=== PATIENT | female | born 2000 | race Caucasian/White ===

== ENCOUNTER 2018-12-17 15:20 | Emergency (ER) | payer MEDICAID ==
[~2018-12-17] VITALS: Ht 157.5 cm; Wt 49.1 kg
[2018-12-17 15:25] VITALS: Ht 157.5 cm; Wt 49.1 kg
[2018-12-17] MEDS ORDERED: SEROQUEL100 MG PO (15:28)
[2018-12-17 15:53] LABS: APPEARANCE CLEAR (CLEAR); BILIRUBIN NEGATIVE (NEGATIVE); COLOR YELLOW (YELLOW); GLUCOSE NEGATIVE (NEGATIVE); HCG URINE NEGATIVE (NEGATIVE); KETONE SMALL mg/dL (NEGATIVE); NITRITE NEGATIVE (NEGATIVE); PROTEIN NEGATIVE (NEGATIVE); SPECIFIC GRAVITY 1.015 (1.005-1.020); UROBILINOGEN NORMAL (NORMAL)
[2018-12-17 15:55] LABS: BACTERIA FEW /hpf (NONE SEEN); RED CELLS - URINE 0-5 /hpf (0-5); WHITE CELLS - URINE 0-5 /hpf (0-5)
[2018-12-17 15:56] LABS: BASOPHILS 0.3 % (0-2); EOSINOPHILS 1.6 % (0-7); HEMATOCRIT 39.7 % (36.0-48.0); HEMOGLOBIN 14.1 g/dL (12-16); MCH 34.6 pg (26.0-34.0); MCHC 35.5 g/dL (31.0-37.0); MCV 97.3 fL (80.0-100.0); MEAN PLATELET VOLUME 10.9 fL (7.4-10.4); MONOCYTES 7.7 % (2-11); NEUTROPHILS 70.4 % (40-80); PLATELET COUNT 264 10x3/uL (130-400); RBC 4.08 10x6/uL (4.00-5.40); RDW 12.5 % (11.5-14.5); WBC 6.4 10x3/uL (4.8-10.8)
[2018-12-17 16:13] LABS: ALBUMIN 4.4 g/dL (3.4-5.0); ALKALINE PHOSPHATASE 73 U/L (46-116); ALT (SGPT) 34 U/L (10-68); AMYLASE - SERUM 49 U/L (25-115); CALC OSMOLALITY 277 mosm/kg (275-300); CARBON DIOXIDE 26.4 mmol/L (21.0-32.0); CHLORIDE - SERUM 103 mmol/L (98-107); CREATININE - SERUM 0.7 mg/dL (0.6-1.3); GLUCOSE 85 mg/dL (74-106); LIPASE 107 U/L (73-393); POTASSIUM - SERUM 3.7 mmol/L (3.5-5.1); PROTEIN - SERUM 8.2 g/dL (6.4-8.2); SODIUM 140 mmol/L (136-145); UREA NITROGEN 12 mg/dL (7-18); eGFR NON AFRICAN AMERICAN > 90 mL/min (90-120)
[2018-12-17] MEDS ORDERED: SPRINTEC 28 DA1 EAC1 PO (18:30)
[2018-12-17 18:54] VITALS: BP 122/79
== END 2018-12-17 18:54 | disposition home or self-care (01) ==
LOC: D.ER 15:20
PROVIDERS: Family Medicine
DX: R10.9 Unspecified abdominal pain (principal); N93.9 Abnormal uterine and vaginal bleeding, unspecified

== ENCOUNTER 2019-07-25 15:34 | Inpatient (IN) | payer MEDICAID ==
[~2019-07-25] VITALS: Ht 157.5 cm; Wt 54.5 kg
[2019-07-25] VITALS (10 sets, daily range): BP systolic 108–126; BP diastolic 63–82; BMI 22.3
[~2019-07-25 15:34] MED LIST: SEROQUEL100 MG PO; SPRINTEC 28 DA1 EAC1 PO
[2019-07-25 16:02] LABS: BASOPHILS 0.3 % (0-2); EOSINOPHILS 0.5 % (0-7); HEMATOCRIT 43.1 % (36.0-48.0); HEMOGLOBIN 14.6 g/dL (12-16); IMMATURE GRANULOCYTES 0.2 % (0-5); LYMPHOCYTES 14.6 % (15-50); MCH 34.6 pg (26.0-34.0); MCHC 33.9 g/dL (31.0-37.0); MCV 102.1 fL (80.0-100.0); MEAN PLATELET VOLUME 10.8 fL (7.4-10.4); MONOCYTES 4.7 % (2-11); NEUTROPHILS 79.7 % (40-80); RBC 4.22 10x6/uL (4.00-5.40); RDW 13.1 % (11.5-14.5); WBC 11.2 10x3/uL (4.8-10.8)
--- NOTE | 2019-07-25 16:08 | NUR ---
PT AGITATED AND PULLING AGAINST VENTILATION. DR. GONZALES PUSHED 5 ML PROPOFOL
--- NOTE | 2019-07-25 16:45 | NUR ---
16 FR NG TUBE PLACED. POSITION VERIFIED BY AUSCULATION.
--- NOTE | 2019-07-25 16:47 | NUR ---
PT INTUBATED AT [address] CURIEL. 7.5 ETT 23 AT [facility]. CO2 MONITOR COLOR CHANGE, RADIOLOGY AT BEDSIDE FOR POST INTUBATION CXR.
--- NOTE | 2019-07-25 16:48 | NUR ---
PT BITING ON VENTILATION TUBING. DR. CURIEL ADMINISTERED 5 ML PROPOFOL
--- NOTE | 2019-07-25 16:49 | NUR ---
16FR LARES PLACED AT 1556. STERILE TECHNIQUE MAINTAINED THROUGHOUT PROCEDURE. URINE TO LAB.
--- NOTE | 2019-07-25 16:51 | NUR ---
ETOMIDATE 20 MG SIVP SUCCINYCHOLINE 100 MG SIVP FOR INTUBATION. DR. CURIEL AT BEDSIDE. TIME OF ADMINISTRATION 1546.
[2019-07-25 16:54] LABS: PLATELET COUNT 350 10x3/uL (130-400)
--- NOTE | 2019-07-25 17:00 | NUR ---
PT BECOMING VERY AGITATED. DR. CURIEL PUSHED 10 ML PROPOFOL
[2019-07-25 17:07] LABS: UDS - AMPHET NEGATIVE QUAL (NEGATIVE); UDS - BARB NEGATIVE QUAL (NEGATIVE); UDS - BENZO NEGATIVE QUAL (NEGATIVE); UDS - COCAINE NEGATIVE QUAL (NEGATIVE); UDS - OPIATE NEGATIVE QUAL (NEGATIVE); UDS - PCP NEGATIVE QUAL (NEGATIVE); UDS - THC POSITIVE QUAL (NEGATIVE)
[2019-07-25 17:14] LABS: CALC OSMOLALITY 286 mosm/kg (275-300); CALCIUM 8.1 mg/dL (8.5-10.1); CHLORIDE - SERUM 106 mmol/L (98-107); CREATININE - SERUM 0.7 mg/dL (0.6-1.3); GLUCOSE 107 mg/dL (74-106); HCG SERUM NEGATIVE (NEGATIVE); POTASSIUM - SERUM 5.1 mmol/L (3.5-5.1); SODIUM 144 mmol/L (136-145); UREA NITROGEN 13 mg/dL (7-18); eGFR NON AFRICAN AMERICAN > 90 mL/min (90-120)
[2019-07-25 17:16] LABS: APPEARANCE CLEAR (CLEAR); BILIRUBIN NEGATIVE (NEGATIVE); COLOR YELLOW (YELLOW); GLUCOSE NEGATIVE (NEGATIVE); KETONE NEGATIVE (NEGATIVE); NITRITE NEGATIVE (NEGATIVE); PROTEIN NEGATIVE (NEGATIVE); UROBILINOGEN NORMAL (NORMAL)
[2019-07-25 17:26] LABS: ALKALINE PHOSPHATASE 61 U/L (46-116); ALT (SGPT) 40 U/L (10-68); BILIRUBIN - TOTAL 0.24 mg/dL (0.2-1.3); MAGNESIUM - SERUM 2.4 mg/dL (1.8-2.4); PROTEIN - SERUM 8.2 g/dL (6.4-8.2)
--- NOTE | 2019-07-25 18:07 | NUR ---
PT BECOMING AGITATED WHILE ADMINISTERING EKG. DR. CURIEL PUSHED 5 CC PROPOFAL
--- NOTE | 2019-07-25 18:40 | NUR ---
PT BECOMING AGITATED. SUCTIONED SECRETIONS. DR. CURIEL ADMINISTERED 5 ML DIPRIVAN
--- NOTE | 2019-07-25 19:05 | NUR ---
GETTING PT READY FOR TRANSPORT WAS AROUSED. DR CURIEL ADMINISTERED 5 ML PROPOFAL
--- NOTE | 2019-07-25 19:05 | NUR ---
RECEIVED BY ER STAFF. PT INTUBATED, SEDATED, OPENS EYES TO DEEP STIMULI. L HAND PIV AND R HAND PIV PATENT, DRESSING INTACT. VSS, NO SIGNS OF ACUTE DISTRESS NOTED. O2 SAT 100%, NSR ON MONITOR. WILL CONTINUE PLAN OF CARE.
--- NOTE | 2019-07-25 20:00 | NUR ---
GRANDMOTHER AND SISTER AT BEDSIDE, UPDATE GIVEN.
--- NOTE | 2019-07-25 20:25 | NUR ---
DR BHARATHI PRICE.
--- NOTE | 2019-07-25 21:00 | NUR ---
PT OBSERVED TRYING TO SIT UP, PULLING AT RESTRAINTS. UNABLE TO FOLLOW COMMANDS. OPENS EYES SPONTANEOUSLY. WILL TITRATE DIPRIVAN ACCORDING TO ORDERS.
--- NOTE | 2019-07-25 22:15 | NUR ---
SPOKE WITH DR GARVIN, NEW ORDERS RECEIVED.
--- NOTE | 2019-07-25 23:00 | NUR ---
REASSESSMENT COMPLETE, SEE FLOWSHEET. VSS, NO SIGNS OF ACUTE DISTRESS NOTED. PT SEDATED, OPENS EYES TO VOICE. WILL NOT FOLLOW COMMANDS. WILL CONTINUE PLAN OF CARE.
[2019-07-26] VITALS (24 sets, daily range): BP systolic 97–128; BP diastolic 42–83; Ht 157.5 cm; Wt 54.5 kg
--- NOTE | 2019-07-26 01:30 | NUR ---
PT OBSERVED SITTING STRAIGHT UP IN THE BED. FENTANYL TITRATED PER MAR. UPDATED FAMILY. WILL MONITOR.
--- NOTE | 2019-07-26 03:00 | NUR ---
REASSESSMENT COMPLETE, SEE FLOWSHEET.
--- NOTE | 2019-07-26 03:30 | NUR ---
PT AGITATED, ATTEMPTING TO SIT STRAIGHT UP IN BED. FENTANYL TITRATED PER ORDERS.
[2019-07-26 04:13] LABS: BASOPHILS 0.2 % (0-2); EOSINOPHILS 1.6 % (0-7); HEMATOCRIT 35.3 % (36.0-48.0); IMMATURE GRANULOCYTES 0.3 % (0-5); LYMPHOCYTES 26.3 % (15-50); MCH 33.9 pg (26.0-34.0); MEAN PLATELET VOLUME 10.4 fL (7.4-10.4); MONOCYTES 8.6 % (2-11); PLATELET COUNT 316 10x3/uL (130-400); RBC 3.54 10x6/uL (4.00-5.40); RDW 12.7 % (11.5-14.5); WBC 11.6 10x3/uL (4.8-10.8)
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
[2019-07-26 04:24] LABS: CALC OSMOLALITY 288 mosm/kg (275-300); CALCIUM 7.6 mg/dL (8.5-10.1); CARBON DIOXIDE 22.3 mmol/L (21.0-32.0); CHLORIDE - SERUM 109 mmol/L (98-107); CREATININE - SERUM 0.6 mg/dL (0.6-1.3); GLUCOSE 72 mg/dL (74-106); SODIUM 146 mmol/L (136-145); UREA NITROGEN 11 mg/dL (7-18); eGFR NON AFRICAN AMERICAN > 90 mL/min (90-120)
--- NOTE | 2019-07-26 04:30 | NUR ---
SPOKE WITH NEXT OF KIN, GRANDMOTHER DERIK. UPDATED ON PT STATUS. INFORMED HER THAT PT WAS STABLE, ANSWERING QUESTIONS BY NODDING HEAD YES AND NO. INFORMED HER THAT UNTIL WE ARE ABLE TO COMPLETE SUICIDE SCREENING WE ARE UNABLE TO ALLOW ANY VISITORS BACK AND WE WILL LET HER KNOW IF ANYTHING CHANGES. TOLD HER SHE IS ABLE TO UPDATE ANY FAMILY THAT SHE WISHES. SHE SAID OKAY AND WENT BACK TO WAITING ROOM WHERE THE OTHER REMAINING FAMILY IS.
[2019-07-26 04:35] LABS: POTASSIUM - SERUM 3.2 mmol/L (3.5-5.1)
--- NOTE | 2019-07-26 04:35 | NUR ---
PSYCH NURSE AT BEDSIDE TO EVALUATE PT.
[2019-07-26 04:37] LABS: MCV 99.7 fL (80.0-100.0)
--- NOTE | 2019-07-26 04:45 | NUR ---
PSYCH NURSE UNABLE TO OBTAIN CLEAR AND CONCISE ANSWERS FROM PT R/T SUICIDE RISK, WILL RE-EVAL WHEN EXTUBATED. PSYCH NURSE TO UPDATE FAMILY IN WAITING ROOM ON WAY OUT. GRANDMOTHER AT WAITING ROOM DOOR RINGING DOOR SOUZA. OBSERVED FAMILY IN WAITING ROOM GETTING CONFRONTATIONAL TOWARD PSYCH NURSE. SECURITY CALLED.
--- NOTE | 2019-07-26 06:00 | NUR ---
SPOKE WITH FAMILY IN WAITING ROOM (UNCLE JULIO CÉSAR AND COUSIN SAM) AND UPDATED ON PT STATUS. INFORMED FAMILY THAT PT CANNOT HAVE ANY VISITORS UNTIL PROPER PSYCH EVAL IS COMPLETE AND IF THERE ARE ANY CHANGES THEY WILL BE NOTIFIED OF PT STATUS. FAMILY SAID OKAY AND EXPRESSED CONCERNS WITH PT'S MENTAL STATUS.
--- NOTE | 2019-07-26 08:17 | NUR ---
0700 PT RECIEVED ON VENT, AWAKE AND ABLE TO FOLLOW COMMANDS INTERMITTENTLY WITH PROPOFOL AND FENTANYL INFUSING, CALLED CONSULT TO ANDIE HORN HAND PIVS INFUSING, DRESSING CDI, NGT LIS, LARES DRAINING YELLOW URINE, RESTRAINTS IN PLACE, VSS, WILL CONTINUE TO MONITOR
--- NOTE | 2019-07-26 09:26 | NUR ---
DR HORN IN UNIT ORDERS FOR PRECIDEX AND TO STOP PROPOFOL
--- NOTE | 2019-07-26 09:51 | NUR ---
PT CONTINUALLY ATTEMPTING TO SELF EXTUBATE, DR HORN IN UNIT AND NOTIFIED ORDERS FOR PRECIDEX AND VERSED, SEE EMAR AND IV FLOWSHEET, CHARGE NURSE AWARE OF PTS BEHAVIORS WELL, PT REQUESTED NO VISITORS TO PREVIOUS NURSE AND FAMILY AWARE, FAMILY IN WAITING ROOM.
--- NOTE | 2019-07-26 12:33 | NUR ---
while setting up for chg bath case assembler asked pt if her grandma was her in case of emergency and if she could have info on pt, pt shook head no extremely quickly, asked if there was anyone to be contacted and pt again shook head no very quickly. pt is in and out of calmness, alternating between calmly sedated and attempting to remove ett, asking "what happened" and "untie me". pt reoriented prn, chg bath done with assistance of another female nurse and linens changed
--- NOTE | 2019-07-26 12:39 | NUR ---
SISTER TAN BROUGHT 2 PT BELONGING BAGS AND SAID BELONGED TO PT. APPEARS TO BE A BLUE/WHITE PLAID SHIRT, SOILED JEANS, SLIP ON BROWN SHOES AND JACKET. ONE ENVELOPE WITH NAME EDUARDO
--- NOTE | 2019-07-26 12:46 | MORECARE ---
CASE MANAGEMENT DISCHARGE SUMMARY PATIENT: BERNIE MICHELLE UNIT: [id number] ADM DATE: 07/25/19 AGE: 18 : 98 SEX: F ROOM/BED: D.2305 AUTHOR: PASCUAL DORADO PHYSICIAN: REFERRING PHYSICIAN: IMER GARVIN MD DATE OF SERVICE: 07/26/19 Discharge Plan Patient Name: BERNIE MICHELLE [facility] [facility] 2000 Planned Disposition: Anticipated Discharge Date: Discharge Date: Expected LOS: Initial Reviewer: [email or web address] Initial Review Date: 07/25/2019 Generated: 07/26/19 1:45 pm Patient Name: BERNIE MICHELLE Page [phone] at 1246 All edits/amendments must be made on the electronic document DICTATION DATE: 07/26/19 1245 SECURITY SYSTEMS ADMINISTRATOR: DERRICK 07/26/19 1245 RPT#: [id number] DC DATE: STATUS: ADM IN [facility] [address] [place] [address] END OF REPORT
--- NOTE | 2019-07-26 12:54 | MORECARE ---
CASE MANAGEMENT DISCHARGE SUMMARY PATIENT: BERNIE MICHELLE UNIT: [id number] ADM DATE: 07/25/19 AGE: 18 : 98 SEX: F ROOM/BED: D.2305 AUTHOR: PASCUAL DORADO PHYSICIAN: REFERRING PHYSICIAN: IMER GARVIN MD DATE OF SERVICE: 07/26/19 Discharge Plan Patient Name: BERNIE MICHELLE Facility: [facility]:[place] : 2000 Planned Disposition: Anticipated Discharge Date: Discharge Date: Expected LOS: Initial Reviewer: [email or web address] Initial Review Date: 07/25/2019 Generated: 07/26/19 1:54 pm Comments DCP- Discharge Planning Updated by [email or web address]: Soha Matos on 07/26/19 11:[address] CM attempted to see patient she is current on vent but alert. Patient requesting that CM not speak to family. CM will come back once patient is extubated. CM will continue to follow and assist as needed with discharge planning / needs. Last DP export: 07/26/19 11:46 Patient Name: BERNIE MICHELLE Page [phone] at 1254 All edits/amendments must be made on the electronic document DICTATION DATE: 07/26/19 1254 BOLT LABELER: DERRICK 07/26/19 1254 RPT#: [id number] DC DATE: STATUS: ADM IN [facility] [address] [place] [address] END OF REPORT
--- NOTE | 2019-07-26 13:11 | NUR ---
DR GARVIN BY TO SEE PATIENT. ASK WHY IS SEDATED. LET HIM KNOW DR HORN NOT READY TO WEAN TO EXTUBATE. HE CALLED DR HORN AND THEY DISCUSSED PT. SEDATION HAS NOW BEEN TURNED OFF TO WEAN TO EXTUBATE
--- NOTE | 2019-07-26 14:29 | NUR ---
DR HORN IN UNIT, ORDERS FOR ABGS
--- NOTE | 2019-07-26 15:17 | NUR ---
SPOKE WITH DR HORN, ORDERS TO EXTUBATE, EXTUBATED AND RESTRAINTS DCD 1510, SUICIDE SCREENING DONE, DOCTOR OF DENTAL SURGERY CALLED AND STATED SHE WOULD HAVE PSYCH COME EVAL
--- NOTE | 2019-07-26 16:44 | NUR ---
unit manger and live in housekeeper and charge nurse aware of still waiting on psych, pt 1:1 while waiting.
--- NOTE | 2019-07-26 16:54 | NUR ---
PSYCH NURSE HERE FOR EVAL
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
--- NOTE | 2019-07-26 17:24 | NUR ---
PTS BROTHER MICHAEL CALLED FOR UPDATE, ASKED TO SPEAK WITH PT, PT AGREED AND CALL TRANSFERRED TO ROOM
--- NOTE | 2019-07-26 19:00 | NUR ---
REPORT REC'D, ASSUMED PT'S CARE. ASSESSMENT COMPLETED. PT A/O X3, DENIES ANY DISCOMFORT AT THIS TIME. ST ON CM WITH HR AT 108BPM, LUNG SOUNDS CLEAR TO ALL [place]. LARES CATH INTACT TO GRAVITY. PPP. CALL LIGHT IN REACH. CONT TO MONITOR.
--- NOTE | 2019-07-26 21:54 | NUR ---
FRIEND AT BEDSIDE. NO SIGNS OF DISTRESS AT THIS TIME. VSS. CALL LIGHT IN REACH. CPOC.
--- NOTE | 2019-07-26 23:00 | NUR ---
REASSESSMENT COMPLETED PER FLOWSHEETS, NO ACUTE CHANGES IN PT'S CONDITION. VSS. NO NEEDS VOICES AT THIS TIME. CPOC.
[2019-07-27] VITALS (11 sets, daily range): BP systolic 89–149; BP diastolic 49–116
[2019-07-27 04:15] LABS: HEMATOCRIT 33.9 % (36.0-48.0); HEMOGLOBIN 11.4 g/dL (12-16); MCH 33.9 pg (26.0-34.0); MCHC 33.6 g/dL (31.0-37.0); MCV 100.9 fL (80.0-100.0); MEAN PLATELET VOLUME 10.7 fL (7.4-10.4); PLATELET COUNT 265 10x3/uL (130-400); RBC 3.36 10x6/uL (4.00-5.40); RDW 12.8 % (11.5-14.5); WBC 20.3 10x3/uL (4.8-10.8)
[2019-07-27 04:20] LABS: CALC OSMOLALITY 269 mosm/kg (275-300); CALCIUM 7.9 mg/dL (8.5-10.1); CARBON DIOXIDE 23.2 mmol/L (21.0-32.0); CHLORIDE - SERUM 101 mmol/L (98-107); CREATININE - SERUM 0.7 mg/dL (0.6-1.3); GLUCOSE 78 mg/dL (74-106); POTASSIUM - SERUM 3.4 mmol/L (3.5-5.1); SODIUM 136 mmol/L (136-145); UREA NITROGEN 9 mg/dL (7-18); eGFR NON AFRICAN AMERICAN > 90 mL/min (90-120)
[2019-07-27 04:34] LABS: BASOPHILS 1 % (0-2); EOSINOPHILS 1 % (0-7); LYMPHOCYTES 14 % (15-50); MONOCYTES 3 % (2-11); NEUTROPHILS 73 % (40-80)
[2019-07-27 04:35] LABS: PLATELET ESTIMATE NORMAL
--- NOTE | 2019-07-27 07:00 | NUR ---
PT RESTING IN BED, VSS AND WNL. PT ANSWERS ALL QUESTIONS. PT DENIES ANY SUICIDAL THOUGHTS AT THIS TIME, CALL LIGHT WITHIN REACH. WILL CONT TO FOLLOW POC
--- NOTE | 2019-07-27 08:36 | NUR ---
PAGED , PT CONTINUES TO STATE SHE WANTS TO GO HOME. NEW ORDER RECIEVED TO REMOVE LARES CATHETER. STATES HE DOES NOT BELIEVE PT WAS SUICIDAL SO NO PSYCH CONSULT NEEDED AND HE WILL BE HERE SHORTLY TO TALK WITH PT. PT MADE AWARE. LARES CATHETER REMOVED WITH CATHETER TIP INTACT. PT EDUCATED TO USE CALL LIGHT WHEN NEEDS TO USE BEDSIDE COMMODE. PT VERBALIZES UNDERSTANDING
--- NOTE | 2019-07-27 09:25 | NUR ---
SPEECH THERAPY HERE TO EVALUATE PT
--- NOTE | 2019-07-27 09:27 | NUR ---
NUTRITION F/U PT EXTUBATED, SPEECH THERAPY AT BEDSIDE. WILL PROVIDE DIET PER SPEECH REC'S, MONITOR PT PROGRESS, PO INTAKE. RD FOLLOWING
--- NOTE | 2019-07-27 10:11 | NUR ---
PT URINATED 400CC IN BEDSIDE COMMODE. HERE AND STATES HE WILL D/C PT HOME LATER TODAY, PT AWARE
--- NOTE | 2019-07-27 10:30 | NUR ---
CHG BATH GIVEN, ELECTRODES REPLACED. VSS AT THIS TIME, BED ALARM ON, WILL CONT TO FOLLOW POC
--- NOTE | 2019-07-27 13:17 | NUR ---
DISCHARGE INSTRUCTIONS REVIEWED WITH PT AND ALL QUESTIONS ANSWERED. PIV TO BENNETT HANDS REMOVED WITH CATHETER TIP INTACT. PT IS WORKING ON GETTING A RIDE NOW
--- NOTE | 2019-07-27 16:33 | MORECARE ---
CASE MANAGEMENT DISCHARGE SUMMARY PATIENT: BERNIE MICHELLE UNIT: [id number] ADM DATE: 07/25/19 AGE: 18 : 98 SEX: F ROOM/BED: D.2305 AUTHOR: PASCUAL DORADO PHYSICIAN: REFERRING PHYSICIAN: IMER GARVIN MD DATE OF SERVICE: 07/27/19 Discharge Plan Patient Name: BERNIE MICHELLE Facility: [facility]:[place] : 2000 Planned Disposition: Home Anticipated Discharge Date: Discharge Date: 07/27/2019 Expected LOS: Initial Reviewer: [email or web address] Initial Review Date: 07/25/2019 Generated: 07/27/19 5:32 pm DCP- Discharge Planning Updated by [email or web address]: Soha Matos on 07/26/19 11:[address] CM attempted to see patient she is current on vent but alert. Patient requesting that CM not speak to family. CM will come back once patient is extubated. CM will continue to follow and assist as needed with discharge planning / needs. Last DP export: 07/26/19 11:54 Patient Name: BERNIE MICHELLE Page [phone] at 1633 All edits/amendments must be made on the electronic document DICTATION DATE: 07/27/19 163 ICE HOCKEY COACH: DERRICK 07/27/19 1632 RPT#: [id number] DC DATE:07/27/19 STATUS: DIS IN [facility] [address] [place] [address] END OF REPORT
--- NOTE | 2019-07-27 16:40 | MORECARE ---
CASE MANAGEMENT DISCHARGE SUMMARY PATIENT: BERNIE MICHELLE UNIT: [id number] ADM DATE: 07/25/19 AGE: 18 : [birth year] SEX: F ROOM/BED: D.2305 AUTHOR: PASCUAL DORADO PHYSICIAN: REFERRING PHYSICIAN: IMER GARVIN MD DATE OF SERVICE: 07/27/19 Discharge Plan Patient Name: BERNIE MICHELLE Facility: [facility]:[place] : 2000 Planned Disposition: Home Anticipated Discharge Date: Discharge Date: 07/27/2019 Expected LOS: Initial Reviewer: [email or web address] Initial Review Date: 07/25/2019 Generated: 07/27/19 5:39 pm Comments DCP- Discharge Planning Updated by [email or web address]: Soha Matos on 07/27/19 3:[address] CM met with patient she denies any discharge needs plans to go home. Grandmother to transport patient home upon discharge.CM will continue to follow and assist as needed with discharge planning / needs DCP- Discharge Planning Updated by [email or web address]: Soha Matos on 07/26/19 11:[address] CM attempted to see patient she is current on vent but alert. Patient requesting that CM not speak to family. CM will come back once patient is extubated. CM will continue to follow and assist as needed with discharge planning / needs. Last DP export: 07/27/19 3:33 Patient Name: BERNIE MICHELLE Page [phone] at 1640 All edits/amendments must be made on the electronic document DICTATION DATE: 07/27/19 1639 INTELLIGENCE AGENT: DERRICK 07/27/19 1639 RPT#: [id number] DC DATE:07/27/19 STATUS: DIS IN [facility] [address] [place] [address] END OF REPORT
--- NOTE | 2019-07-27 17:09 | MORECARE ---
CASE MANAGEMENT DISCHARGE SUMMARY PATIENT: BERNIE MICHELLE UNIT: [id number] ADM DATE: 07/25/19 AGE: 18 : 98 SEX: F ROOM/BED: D.2305 AUTHOR: PASCUAL DORADO PHYSICIAN: REFERRING PHYSICIAN: IMER GARVIN MD DATE OF SERVICE: 07/27/19 Discharge Plan Patient Name: BERNIE MICHELLE Facility: [facility]:[place] : 2000 Planned Disposition: Home Anticipated Discharge Date: Discharge Date: 07/27/2019 Expected LOS: Initial Reviewer: [email or web address] Initial Review Date: 07/25/2019 Generated: 07/27/19 6:09 pm Comments DCP- Discharge Planning Updated by [email or web address]: Soha Matos on 07/27/19 3:[address] CM met with patient she denies any discharge needs plans to go home. Grandmother to transport patient home upon discharge.CM will continue to follow and assist as needed with discharge planning / needs DCP- Discharge Planning Updated by [email or web address]: Soha Matos on 07/26/19 11:[address] CM attempted to see patient she is current on vent but alert. Patient requesting that CM not speak to family. CM will come back once patient is extubated. CM will continue to follow and assist as needed with discharge planning / needs. Last DP export: 07/27/19 3:40 Patient Name: BERNIE MICHELLE Page [phone] at 1709 All edits/amendments must be made on the electronic document DICTATION DATE: 07/27/191708 AIR EXPORT AGENT: DERRICK 07/27/191708 RPT#: [id number] DC DATE:07/27/19 STATUS: DIS IN [facility] [address] [place] [address] END OF REPORT
== END 2019-07-27 14:10 | disposition home or self-care (01) | DRG 208 ==
LOC: D.ER 15:34 → D.ICU 17:57
PROVIDERS: Family Medicine; ADMIT Internal Medicine Nephrology; ATTEND Internal Medicine Nephrology
PROC: 5A1935Z Respiratory Ventilation, Less than 24 Consecutive Hours (ICD-10-PCS; principal; 2019-07-25)
PROC: 0BH17EZ Insertion of Endotracheal Airway into Trachea, Via Natural or Artificial Opening (ICD-10-PCS; 2019-07-25)
DX: J96.01 Acute respiratory failure with hypoxia (principal); G92 Toxic encephalopathy; E87.0 Hyperosmolality and hypernatremia; F17.203 Nicotine dependence unspecified, with withdrawal; G31.2 Degeneration of nervous system due to alcohol; F10.129 Alcohol abuse with intoxication, unspecified; E87.6 Hypokalemia; F32.9 Major depressive disorder, single episode, unspecified; F19.10 Other psychoactive substance abuse, uncomplicated